=== PATIENT | male | born 1995 | race Caucasian/White ===

== ENCOUNTER 2019-01-18 18:15 | Emergency (ER) | payer OTHER ==
[2019-01-18 18:23] VITALS: BP 143/95
[2019-01-18] MEDS ORDERED: HYDROcod/ACETAM 5/325 MG TABLET PO STA (18:59)
[2019-01-18] MEDS ORDERED: IBUPROFEN 800 MG TABLET PO STA (18:59)
--- NOTE | 2019-01-18 19:00 | ED Physician Documentation ---
PD HPI LOWER EXT INJURY - Stated complaint Stated Complaint: RT ANKLE INJURY - Chief complaint Chief Complaint: Trauma Ext - History obtained from History obtained from: Patient - History of Present Illness PD HPI LOW EXT INJURY LOCATION: Right (23-year-old gentleman, active duty in the [employer] [place] stepped down off of machinery today and into a pothole with his right foot and heard a pop. With increasing pain now, difficult to walk and bear weight. No other injuries.) Review of Systems Constitutional: denies: Fever, Chills Eyes: reports: Reviewed and negative Throat: reports: Reviewed and negative PD PAST MEDICAL HISTORY - Present Medications Home Medications: Ambulatory Orders Medication Instructions Recorded Confirmed Hydrocodone/Acetaminophen 1 - 2 each PO Q6H PRN #7 tablet 01/18/19 [Hydrocodon-Acetaminophen 5-325] Ibuprofen [Motrin] 800 mg PO Q8H PRN #30 tablet 01/18/19 - Allergies Allergies/Adverse Reactions: Allergies Allergy/AdvReac Type Severity Reaction Status Date / Time No Known Drug Allergies Allergy Verified 01/18/19 18:23 PD ED PE NORMAL - Vitals Vital signs reviewed: Yes - General General: Alert and oriented X 3, No acute distress - Extremities Extremities: Other (Tender over the lateral malleolus and ATFL without foot, medial malleolus, or proximal fibular tenderness.) - Neuro Neuro: Alert and oriented X 3, Normal speech Results - Vitals Vitals: Vital Signs - 24 hr 01/18/19 18:22 Temperature 37.7 C H Heart Rate 93 Respiratory 20 Rate Blood Pressure 143/95 H O2 Saturation 99 Oxygen O2 Source Room air - Rads (name of study) R ankle 3v Radiology: EMP read contemporaneously (STS no frx) Departure - Departure Disposition: 01 Home, Self Care Clinical Impression: Right ankle sprain Qualifiers: Encounter type: initial encounter Involved ligament of ankle: anterior talofi bular ligament Qualified Code(s): S93.491A - Sprain of other ligament of right ankle, initial encounter Condition: Good Record reviewed to determine appropriate education?: Yes Instructions: ED Sprain Ankle W X Ray Prescriptions: Hydrocodone/Acetaminophen [Hydrocodon-Acetaminophen 5-325] 1 - 2 each PO Q6H PRN #7 tablet PRN Reason: pain Ibuprofen [Motrin] 800 mg PO Q8H PRN #30 tablet PRN Reason: PAIN &/OR FEVER Comments: [place] reche[place].. In the interim, return anytime if worse or if new symptoms develop. Forms: Activity restrictions
--- NOTE | 2019-01-18 19:02 | XRAY Report ---
Reason: twisted, pain swelling Procedure Date: 01/18/2019 Accession Number: [id number] / [id number] Procedure: XR - Ankle 3 View RT CPT Code: FULL RESULT: EXAM: RIGHT ANKLE RADIOGRAPHY EXAM DATE: 01/18/2019 06:26 PM. CLINICAL HISTORY: Twisted, pain swelling. COMPARISON: None. TECHNIQUE: 3 views. FINDINGS: Bones: No evidence for acute fracture. Elongated focal area of sclerosis seen at the distal tibia, suspect a bone island. Joints: Normal. No effusion. No subluxations. The ankle mortise is normally aligned. Soft Tissues: Large lateral ankle soft tissue swelling. IMPRESSION: Large lateral ankle soft tissue swelling. No evidence for acute fracture. [facility]
== END 2019-01-18 19:12 | disposition home or self-care (01) ==
LOC: ED 18:15
DX: S93.491A Sprain of other ligament of right ankle, initial encounter (principal); X50.1XXA Overexertion from prolonged static or awkward postures, initial encounter; Y99.1 Military activity
CPT/HCPCS: 73610; 99283; A9270